=== PATIENT | male | born 1950 | race Two or more races ===

== ENCOUNTER 2021-09-30 19:07 | Emergency (ER) | payer MEDICARE, OTHER ==
[~2021-09-30] VITALS: Ht 167.6 cm; Wt 81.6 kg
[2021-09-30 19:10] VITALS: BP 139/68
== END 2021-10-01 07:25 | disposition left against medical advice (07) ==
LOC: ER 19:09
DX: S61.217A Laceration without foreign body of left little finger without damage to nail, initial encounter (principal); Z53.21 Procedure and treatment not carried out due to patient leaving prior to being seen by health care provider; W25.XXXA Contact with sharp glass, initial encounter; Y93.89 Activity, other specified; Y92.89 Other specified places as the place of occurrence of the external cause; Y99.8 Other external cause status